=== PATIENT | female | born 1980 | race Caucasian/White ===

== ENCOUNTER 2017-01-08 16:11 | Outpatient (CLI) | payer OTHER ==
[2014-02-22 22:58] VITALS: BP 118/68
== END 2017-01-08 16:12 ==
LOC: LAB 16:11
PROVIDERS: ATTEND Family Medicine
DX: Z13.29 Encounter for screening for other suspected endocrine disorder (principal)
CPT/HCPCS: 36415; 84443

== ENCOUNTER 2017-03-21 17:40 | Emergency (ER) | payer OTHER ==
--- NOTE | 2017-03-21 17:46 | ED Physician Documentation ---
General Adult - HISTORIAN Historian: patient - HPI Stated Complaint: left lower quad/breast pain Chief Complaint: Flank Pain Onset: days ago (3) Timing: better Severity: moderate Modifying Factors: with sitting he states that it is worse Further Comments: yes (She states that over the years she has this pain on and off when she tries to take a deep breath, she states over the last 3 days she notes the pain is increased with sitting then today she was driving after not getting to catch her breath and she started to drive here and she had increasing pain and passed out twice) Last known Well Date: 03/17/17 Last Known Well Time: 08:00 Last known Well Code/Unknown Code: Unknown - ROS CONST: denies: fever, sweating, recent illness EYES/ENT: none CVS/RESP: shortness of breath, cough. denies: chest pain GI/: denies: problems urinating, vomiting, nausea, diarrhea MS/SKIN/LYMPH: none NEURO/PSYCH: fainting (she states from the pain ). denies: headache, anxiety - PAST HX Past History: none Other History: none Surgeries/Procedures: other (T&A, hysterectomy, c section ) - SOCIAL HX Smoking History: quit less than 1 year (3 days ago ) Alcohol Use: none Drug Use: none - FAMILY HX Family History: No - VITAL SIGNS Vital Signs: Vital Signs Temp Pulse Resp BP Pulse Ox 118/68 02/22/14 22:57 - REVIEWED ASSESSMENTS Nursing Assessment Reviewed: Yes Vitals Reviewed: Yes <Rakel Sotomayor - Last Filed: 03/21/17 18:48> - VITAL SIGNS Vital Signs: Vital Signs Temp Pulse Resp BP Pulse Ox 98.2 F 72 26 H 117/48 100 03/21/17 17:52 03/21/17 17:52 03/21/17 17:52 03/21/17 17:52 03/21/17 17:52 <Kirk Bose - Last Filed: 03/21/17 21:18> - PAST HX Allergies/Adverse Reactions: Allergies Allergy/AdvReac Type Severity Reaction Status Date / Time No Known Allergies Allergy Verified 03/21/17 17:51 Home Medications: Ambulatory Orders Medication Instructions Recorded Estradiol 2 mg PO DAILY 30 Days #15 01/30/17 Progress - Progress Progress: 1847: She is still tearful. Denies any relief States she feels where the pain is with touch although the touch does not reproduce the pain She reports the pain goes from directly under the left breast to the middle of her rib cage under the left breast <Rakel Sotomayor - Last Filed: 03/21/17 18:48> - Progress Progress: Pt received Toradol 30 mg IV, Norflex 60 mg IV, and Simethicone 80 mg po per Rakel Sotomayor in 1st part of visit. Care transferred to Dr. Bose at 1900. CT chest w/o contrast: normal Graham (5/325) 2 tablets in ER. Azithromycin 500 mg po in ER Sx c/w pleurisy. Pt appeared very anxious earlier and may have been hyperventating earlier. D/c instructions: Rx Naproxen 500 mg. Take one by mouth every 12 hrs. Rx Azitrhomycin 250 mg. Take one by mouth once daily for 5 days. Rx Graham (5/325). Take one or two tablets by mouth every 4 to 6 hrs as needed for moderate to severe pain. <Kirk Bose - Last Filed: 03/21/17 21:18> ED Results Lab/Radiology - Radiology Radiology Impressions: Chest PA and lateral views Clinical history: Left-sided chest pain and dyspnea Normal heart shadow and mediastinum. Clear lungs without acute infiltrate or pleural effusion. No pneumothorax. Normal bony thorax. Impression: No active pulmonary pathology Electronically signed on Mar 21, 2017 6:45:23 PM SWITCH INSPECTOR by: Navneet Royal <Rakel Sotomayor - Last Filed: 03/21/17 18:48> - Lab Results Lab Results: Lab Results 03/21/17 03/21/17 03/21/17 18:13 18:13 18:10 WBC 6.70 K/ul K/ul (4.00-12.00) RBC 4.33 M/ul M/ul (3.90-5.20) Hgb 13.1 g/dL g/dL (12.0-16.0) Hct 38.1 % % (34.5-46.5) MCV 88.0 fl fl (80.0-100.0) MCH 30.3 pg pg (28.0-34.0) MCHC 34.4 g/dL g/dL (30.0-36.0) RDW 12.4 % % (11.3-14.3) Plt Count 229 K/mm3 K/mm3 (130-400) Neut % (Auto) 48.8 % % (39.0-79.0) Lymph % (Auto) 40.8 % % (16.0-50.0) [place] % (Auto) 6.2 % % (0.0-11.0) Eos % (Auto) 1.1 % % (0.0-6.8) Baso % (Auto) 0.4 (0.0-1.5) Neut # (Auto) 3.3 # k/uL # k/uL (1.4-7.7) Lymph # (Auto) 2.7 # k/uL # k/uL (0.6-4.0) [place] # (Auto) 0.4 # k/uL # k/uL (0.0-0.9) Eos # (Auto) 0.1 # k/uL # k/uL (0.0-0.6) Baso # (Auto) 0.0 # k/uL # k/uL (0.0-0.5) Reactive Lymphs % 2.7 % % (0.0-5.0) Reactive Lymphs # 0.2 # k/uL # k/uL (0.0-0.8) Sodium 139 mmol/L mmol/L (136-145) Potassium 3.1 mmol/L L mmol/L (3.5-5.1) Chloride 102 mmol/L mmol/L (98-107) Carbon Dioxide 27 mmol/L mmol/L (22-30) BUN 13 mg/dL mg/dL (7-17) Creatinine 0.80 mg/dL mg/dL (0.52-1.04) Estimated Creat Clear 144 Est GFR ( Amer) > 60 (60 - ) Est GFR (Non-Af Amer) > 60 (60 - ) Glucose 107 mg/dL H mg/dL (74-106) Calcium 8.8 mg/dL mg/dL (8.4-10.2) Total Bilirubin 0.3 mg/dL mg/dL (0.2-1.3) AST 51 U/L H U/L (15-46) ALT 88 U/L H U/L (13-69) Alkaline Phosphatase 49 U/L U/L (38-126) Total Protein 7.2 g/dL g/dL (6.3-8.2) Albumin 3.9 g/dL g/dL (3.5-5.0) Lipase 105 U/L U/L (23-300) - Orders Orders: ED Orders Category Date Time Status Place IV Lock 1T Care 03/21/17 17:59 Active CHEST 2 VIEW [CHEST P.A.&LAT 2 VIEWS] [RAD] Stat Exams 03/21/[address] CHEST W/O CONTRAST Stat Exams 03/21/17 Completed CBC/PLATELET/DIFF Routine Lab 03/21/17 18:13 Completed CMP [CMP] Routine Lab 03/21/17 18:13 Completed D DIMER Stat Lab 03/21/17 18:10 Received LIPASE Urgent Lab 03/21/17 18:10 Completed UA W/MICRO IF INDICATED Routine Lab 03/21/17 17:59 Ordered Ketorolac Tromethamine [Toradol] Med 03/21/17 18:19 Discontinued 30 mg .ROUTE .STK-MED ONE Ketorolac Tromethamine [Toradol] Med 03/21/17 18:17 Discontinued 30 mg IVP NOW ONE Orphenadrine Citrate [Norflex] Med 03/21/17 18:41 Discontinued 60 mg IV NOW ONE Simethicone [Gas-X] Med 03/21/17 18:19 Discontinued 80 mg .ROUTE .STK-MED ONE Simethicone [Gas-X] Med 03/21/17 18:19 Discontinued 80 mg PO 1T ONE EKG WITH COMPARISON Stat Ther 03/21/17 Ordered <Kirk Bose - Last Filed: 03/21/17 21:18> General Adult Physical Exam - PHYSICAL EXAM GENERAL APPEARANCE: mild distress EENT: eye inspection normal RESPIRATORY: no resp distress, chest non-tender, breath sounds normal CVS: reg rate & rhythm, heart sounds normal, equal pulses, no murmur ABDOMEN: soft, other (pain to left upper rib area with touch ) BACK: normal inspection SKIN: warm/dry, normal color EXTREMITIES: non-tender NEURO: oriented X3, CN's nml as tested <Rakel Sotomayor - Last Filed: 03/21/17 18:48> Discharge <Rakel Sotomayor - Last Filed: 03/21/17 18:48> Decision to Admit: NO Decision Time: 20:14 <Kirk Bose - Last Filed: 03/21/17 21:18> Clincal Impression: Pleuritic chest pain Referrals: Sinai Godinez MD [Primary Care Provider] - Condition: Good
[2017-03-21 18:18] LABS: BASOPHILS % 0.4 (0.0-1.5); EOSINOPHILS % 1.1 % (0.0-6.8); MEAN CORPUSCULAR HEMOGLOBIN 30.3 pg (28.0-34.0); MONOCYTES % 6.2 % (0.0-11.0); NEUTROPHILS # 3.3 # k/uL (1.4-7.7)
[2017-03-21] MEDS: SIMETHICONE 80 MG TAB.CHEW PO ONE (18:20)
[2017-03-21] MEDS: KETOROLAC TROMETHAMINE 30 MG/1ML VIAL IVP ONE (18:25)
[2017-03-21 18:36] LABS: eGFR (African) > 60; eGFR (Non-African) > 60
[2017-03-21] MEDS: SIMETHICONE 80 MG TAB.CHEW ONE (18:38)
[2017-03-21] MEDS: KETOROLAC TROMETHAMINE 30 MG/1ML VIAL ONE (18:38)
[2017-03-21] MEDS: ORPHENADRINE CITRATE 60 MG/2ML IV ONE (18:45)
--- NOTE | 2017-03-21 19:30 | Diagnostic Imaging Report ---
[facility] [place] [facility] [address] [facility] [address] [place], [place]. [address] Report Submission Date: Mar 21, 2017 7:29:11 PM ELECTROSLAG WELDING MACHINE OPERATOR Patient Study Name: TASIA GARCIA Date: Mar 21, 2017 7:09:24 PM ELECTROSLAG WELDING MACHINE OPERATOR Modality Type: CT\SR Gender: F Description: CT CHEST W/O CONTRAST : 76 Institution: [facility] Physician: BRYCE BROTHERS Computed tomography of the chest without contrast History: Left rib pain Findings: Transverse chest sections are obtained without contrast. The lungs and airways are unremarkable. There is no pleural effusion or pneumothorax. Mediastinal structures are normal. The osseous chest wall and thoracic spine are unremarkable. Visualized upper abdominal structures are normal. Impression: Normal. Electronically signed on Mar 21, 2017 7:29:11 PM ELECTROSLAG WELDING MACHINE OPERATOR by: Derek CANNON
--- NOTE | 2017-03-21 19:31 | Diagnostic Imaging Report ---
[facility] [address] [facility].[address] [address] Report Submission Date: Mar 21, 2017 6:45:23 PM MACHINE WELDER Patient Study Name: TASIA GARCIA Date: Mar 21, 2017 6:26:10 PM MACHINE WELDER Modality Type: CR Gender: F Description: CHEST : 76 Institution: [facility] Physician: BRYCE BROTHERS Chest PA and lateral views Clinical history: Left-sided chest pain and dyspnea Normal heart shadow and mediastinum. Clear lungs without acute infiltrate or pleural effusion. No pneumothorax. Normal bony thorax. Impression: No active pulmonary pathology Electronically signed on Mar 21, 2017 6:45:23 PM MACHINE WELDER by: Navneet CANNON
[2017-03-21] MEDS: HYDROcodone /APAP 5/325 1 EACH TABLET PO ONE ×2 (19:55→20:19)
[2017-03-21] MEDS: AZITHROMYCIN 250 MG TABLET PO ONE (20:20)
[2017-03-21 20:54] VITALS: BP 95/60
[2017-03-23 07:06] LABS: APPEARANCE,URINE CLEAR (CLEAR); COLOR,URINE YELLOW (YELLOW); OCCULT BLOOD,URINE NEGATIVE (NEGATIVE); PH URINE 5.5 (5.0 - 8.0); UROBILINOGEN URINE 0.2 Eu (0.2-1.0)
== END 2017-03-21 20:30 ==
LOC: ED 17:40
DX: R07.81 Pleurodynia (principal)
CPT/HCPCS: 71020; 71250; 80053; 83690; 85025; 85379; A9270; J1885; J2360; 81002; 99283

== ENCOUNTER 2017-04-21 09:37 | Outpatient (CLI) | payer OTHER | END 2017-04-21 10:40 | LOC: OUT 09:37 | PROVIDERS: ATTEND General Practice | DX: Z01.419 Encounter for gynecological examination (general) (routine) without abnormal findings (principal); M79.7 Fibromyalgia | CPT/HCPCS: 99213 ==